=== PATIENT | female | born 1970 | race Caucasian/White ===

== ENCOUNTER 2020-05-11 22:26 | Emergency (ER) | payer OTHER ==
[~2020-05-11] VITALS: Ht 162.6 cm; Wt 86.2 kg
[2020-05-11 22:28] VITALS: BP 160/90; Ht 162.6 cm; Wt 86.2 kg
== END 2020-05-12 01:54 | disposition home or self-care (01) ==
LOC: ED 22:26
DX: G44.209 Tension-type headache, unspecified, not intractable (principal)
CPT/HCPCS: J1885; Q0162